=== PATIENT | female | born 1975 | race Caucasian/White ===

== ENCOUNTER → 2017-10-11 | Outpatient (CLI) | payer BC ==
--- NOTE | 2017-10-12 14:25 | RAD ---
DATE: 10/11/2017 EXAM: DIGITAL SCREEN BILAT W/CAD HISTORY: Screening Mammogram COMPARISON: Screening mammogram 04/11/2016, bilateral diagnostic mammogram 2013 This study was interpreted with the benefit of Computerized Aided Detection (CAD ). The breast parenchyma is heterogeneously dense, which could reduce sensitivity of mammography. Breast parenchyma level C. FINDINGS: Bilateral digital 2-D CC and MLO views. No suspicious mass, calcification or architectural distortion. No significant change from prior examination IMPRESSION: No mammographic evidence of malignancy. Recommend routine screening mammogram in 12 months with consideration for 3-D tomosynthesis views due to heterogeneously dense breast tissue. BI-RADS CATEGORY: 1 NEGATIVE RECOMMENDED FOLLOW-UP: PQRS compliance statement: Patient information was entered into a reminder system with a target due date for the next mammogram. Mammography is a sensitive method for finding small breast cancers, but it does not detect them all and is not a substitute for careful clinical examination. A negative mammogram does not negate a clinically suspicious finding and should not result in delay in biopsying a clinically suspicious abnormality. "Our facility is accredited by the [employer] Mammography [employer]." MTDD
== END | disposition home or self-care (01) ==
LOC: MAMMO 08:04
PROVIDERS: ATTEND Obstetrics & Gynecology
DX: Z12.31 Encounter for screening mammogram for malignant neoplasm of breast (principal)
CPT/HCPCS: 77067

== ENCOUNTER → 2019-03-25 | Outpatient (CLI) | payer BC ==
--- NOTE | 2019-03-25 13:51 | RAD ---
DATE: 04/07/2014, 04/11/2016, 10/11/2017 mammographic exams EXAM: DIGITAL SCREEN BILAT W/CAD HISTORY: Routine screening COMPARISON: 04/07/2014, 04/11/2016, 10/11/2017 mammographic exams This study was interpreted with the benefit of Computerized Aided Detection (CAD). Breast Density: DENSE The breast parenchyma is dense, which could reduce the sensitivity of mammography. Breast parenchyma level density D. FINDINGS: No suspicious calcification, mass, or distortion. IMPRESSION: Stable. Tomosynthesis is recommended considering the very dense breast parenchyma. BI-RADS CATEGORY: 1 NEGATIVE RECOMMENDED FOLLOW-UP: 12M 12 MONTH FOLLOW-UP PQRS compliance statement: Patient information was entered into a reminder system with a target due date in one year for the next mammogram. Mammography is a sensitive method for finding small breast cancers, but it does not detect them all and is not a substitute for careful clinical examination. A negative mammogram does not negate a clinically suspicious finding and should not result in delay in biopsying a clinically suspicious abnormality. "Our facility is accredited by the [employer] Mammography [employer]."
== END | disposition home or self-care (01) ==
LOC: MAMMO 10:34
PROVIDERS: ATTEND Obstetrics & Gynecology
DX: Z12.31 Encounter for screening mammogram for malignant neoplasm of breast (principal)
CPT/HCPCS: 77067

== ENCOUNTER → 2019-07-05 | Outpatient (CLI) | payer BC ==
--- NOTE | 2019-07-05 11:37 | RAD ---
Exam performed: Right hand 3 views. Indication: Right hand pain after bumping and hard object. Date of Service: 07/05/2019 Comparison: None available Discussion: PA, oblique lateral radiographs of the hand reveal the osseous structures to be intact and well aligned. The joint spaces are well-preserved. The articular margins are smooth. No soft tissue swelling or foreign bodies detected. Impression: Radiographically normal right hand. Electronically signed by: Elaine Hollingsworth MD (07/05/2019 11:35 AM) [facility]
== END | disposition home or self-care (01) ==
LOC: PMG 10:24
PROVIDERS: ATTEND Family Medicine
DX: M79.641 Pain in right hand (principal)
CPT/HCPCS: 73130

== ENCOUNTER → 2021-06-10 | Outpatient (CLI) | payer BC ==
--- NOTE | 2021-06-10 15:52 | RAD ---
US BREAST LTD RT, MG DIAGNOSTIC BILAT 06/10/2021 9:46 AM INDICATION: Right breast lump around 10:00 position. COMPARISON: 03/25/2019, 10/11/2017 TECHNIQUE: 2D CC and MLO projections were obtained of each breast. Limited right breast ultrasound wa s performed. FINDINGS: Breast density: Category D: The breasts are extremely dense, which lowers the sensitivity of mammogra phy. Right breast: There are no suspicious microcalcifications, masses or areas of architectural distortio n. Left breast: There are no suspicious microcalcifications, masses or areas of architectural distortion . Bilateral mammogram is compared to prior examinations appears unchanged. Targeted sonographic evaluation was performed in the area of concern as indicated by the patient. At the 10:00 position, 4 cm from the nipple there is dense fibroglandular tissue. No suspicious mass or area of architectural distortion. There is typical morphology of the retroareolar region with shadowi ng associated with the nipple. No suspicious features. No suspicious lymphadenopathy within the right axilla. IMPRESSION: Negative bilateral mammogram. Negative right breast ultrasound there BI-RADS category: 1; Negative Recommendations: Clinical management of breast lump. Negative ultrasound and mammogram does not precl ude further imaging if symptoms warrant. Electronically signed by: Aliya Trejo MD (06/10/2021 3:50 PM) [facility]
== END ==
LOC: MAMMO 08:42
PROVIDERS: ATTEND Obstetrics & Gynecology
DX: Z01.419 Encounter for gynecological examination (general) (routine) without abnormal findings (principal); N63.10 Unspecified lump in the right breast, unspecified quadrant
CPT/HCPCS: 76642; 77066